=== PATIENT | male | born 2000 | race Caucasian/White ===

== ENCOUNTER 2018-01-30 19:42 | Emergency (ER) | payer BC ==
[2018-01-30 20:04] VITALS: BP 121/73
--- NOTE | 2018-01-30 20:07 | EDPHY ---
H & P Time Seen by Provider: 01/30/18 19:46 HPI/ROS: CHIEF COMPLAINT: Shoulder injury HISTORY OF PRESENT ILLNESS: 17-year-old male presents to the emergency department by private vehicle with dislocation of his left shoulder. [place] handle[place] and injured his left shoulder. He states that it feels dislocated. He has a history of previous dislocations of the left shoulder and had surgical repair last year in [place] where he is from. This is his 1st dislocations since his surgery. He denies hitting his head or losing consciousness. Denies neck or back pain. Denies chest pain or difficulty breathing. Denies abdominal pain. Denies paresthesias in his upper extremities. REVIEW OF SYSTEMS: Constitutional: No fever, no chills. Eyes: No double or blurry vision. ENT: No sore throat. Respiratory: No cough, no shortness of breath. Cardiac: No chest pain. Gastrointestinal: No abdominal pain, vomiting or diarrhea. Genitourinary: No dysuria. Musculoskeletal: Shoulder injury as above. No neck or back pain. Skin: No rashes. Neurological: No headache. Past Medical/Surgical History: History of previous shoulder dislocations with surgical repair March 2017 Social History: [employer] student from [place] Physical Exam: General Appearance: Alert, no distress. No visible signs of trauma to his head. He is mentating normally and answering questions appropriately. Eyes: Pupils equal and round. Extraocular motions are all intact. ENT: Mouth: Mucous membranes moist. No dental injury or malocclusion. Respiratory: No wheezing, rhonchi, or rales, lungs are clear to auscultation. No pain with palpation to the anterior aspect of his chest. No palpable crepitus or other bony abnormality. Cardiovascular: Regular rate and rhythm. Gastrointestinal: Abdomen is soft and nontender, no masses, no rebound or guarding, bowel sounds normal. No CVA tenderness bilaterally. Neurological: Alert and oriented x 3, cranial nerves II through XII grossly intact Skin: Warm and dry, no rashes. Superficial abrasion the superior aspect of the right shoulder. Superficial abrasions anterior central aspect of his chest which is nontender. Musculoskeletal: Nontender to palpate along the cervical, thoracic or lumbar spine. Neck is supple. Extremities: Obvious deformity noted to the left shoulder with anterior fullness consistent with anterior shoulder dislocation. Full range of motion of the left elbow and left wrist. Normal sensation to light touch with normal 2 point discrimination. Strong radial pulse at the left wrist. Full range of motion of the right upper extremity and lower extremities bilaterally. Psychiatric: Patient is oriented X 3, there is no agitation. Constitutional: Initial Vital Signs Temperature (C) 36.8 C 01/30/18 20:01 Heart Rate 65 01/30/18 20:01 Respiratory Rate 16 01/30/18 20:01 Blood Pressure 121/73 H 01/30/18 20:01 O2 Sat (%) 95 01/30/18 20:01 O2 Delivery Mode Room Air Allergies/Adverse Reactions: No Known Allergies Allergy (Unverified 01/30/18 20:12) Home Medications: Medication Instructions Recorded NK [No Known Home Meds] 01/30/18 Medical Decision Making - Diagnostics Imaging Results: Imaging Impressions Shoulder X-Ray 01/30/18 19:57 Impression: 1. Anatomic alignment of the glenohumeral joint. 2. Fracture of the superiormost glenoid screw. Imaging: I viewed and interpreted images myself Procedures: After consent was obtained, gentle traction and massaged was used to easily reduce the left shoulder. The patient tolerated this quite well. The patient was placed in a sling and examined post application in good placement with normal [employer]. ED Course/Re-evaluation: 17-year-old male presents to the emergency department with dislocation of his left shoulder. This was easily reduced, see procedure note. X-rays reveal anatomic alignment post reduction however he did have evidence of fractured screw. The patient was given copies of his x-rays encouraged to follow up with his orthopedic surgeon. He was also given the name of orthopedic surgeon on-call. Patient had no complaints upon discharge. He felt comfortable being discharged home. Differential Diagnosis: Including but not limited to fracture, dislocation, contusion, sprain Departure - Departure Disposition: Home, Routine, Self-Care Clinical Impression: Dislocation of left shoulder joint Qualifiers: Encounter type: initial encounter Qualified Code(s): S43.005A - Unspecified dislocation of left shoulder joint, initial encounter Condition: Good Instructions: Shoulder Dislocation (ED) Additional Instructions: Sling for comfort and support. Ibuprofen 600 mg every 8 hr as needed for pain. Follow up with orthopedic surgery this week to recheck. Return to the emergency department if you develop numbness or tingling in your fingers, feelings of weakness in your hand, recurring dislocation, or if you feel worse in any way. Referrals: Dick Arellano MD [Medical Doctor] - 5-7 days, call for appt. (Orthopedic surgeon on-call)
== END 2018-01-30 20:37 | disposition home or self-care (01) ==
PROC: 0RSKXZZ Reposition Left Shoulder Joint, External Approach (ICD-10-PCS; principal; 2018-01-30)
DX: S43.005A Unspecified dislocation of left shoulder joint, initial encounter (principal); V18.0XXA Pedal cycle driver injured in noncollision transport accident in nontraffic accident, initial encounter; Y92.830 Public park as the place of occurrence of the external cause; Z87.828 Personal history of other (healed) physical injury and trauma
CPT/HCPCS: A4565